=== PATIENT | male | born 1940 | race Two or more races ===

== ENCOUNTER 2019-12-06 15:35 | Emergency (ER) | payer MEDICARE, BC ==
[~2019-12-06] VITALS: Ht 167.6 cm; Wt 65.8 kg
[2019-12-06 15:52] VITALS: BP 101/60
[2019-12-06] MEDS ORDERED: Omnipaque-300 100ml vial INJ PRN ×2 (16:00→16:15)
[2019-12-06] MEDS ORDERED: Morphine Sulfate 2mg/ml Inj(IV/IM USE ONLY) IVP ONE (16:15)
[2019-12-06 16:53] LABS: APPEARANCE,URINE CLEAR; BILIRUBIN, URINE NEGATIVE (NEGATIVE); GLUCOSE, URINE (UA) NEGATIVE (NEGATIVE); KETONES,URINE 1+ (NEGATIVE); LEUKOCYTE ESTERASE ,URINE NEGATIVE (NEGATIVE); NITRITE,URINE NEGATIVE (NEGATIVE); PH,URINE 5 (4.5-8.0); PROTEIN,URINE 1+ (NEGATIVE); UROBILINOGEN,URINE NORMAL MG/DL (0.0-1.0)
[2019-12-06 16:54] LABS: COLOR,URINE YELLOW
[2019-12-06 16:56] VITALS: BP 112/75
[2019-12-06 17:00] LABS: ANION GAP 12 mmol/L (5-15); BLOOD UREA NITROGEN 44 mg/dL (7-18); CALCIUM 8.2 MG/DL (8.5-10.1); CARBON DIOXIDE 27 MMOL/L (21-32); CHLORIDE 105 MMOL/L (98-107); CREATININE 1.2 MG/DL (0.55-1.30); POTASSIUM 3.1 MMOL/L (3.5-5.1); SODIUM 144 MMOL/L (136-145)
[2019-12-06 17:10] LABS: ALANINE AMINOTRANSFERASE 18 U/L (12-78); ALBUMIN 3.2 G/DL (3.4-5.0); ALBUMIN/GLOBULIN RATIO 1.1 (1.0-2.7); ALKALINE PHOSPHATASE 195 U/L (46-116); ASPARTATE AMINO TRANSFERASE 20 U/L (15-37); BILIRUBIN,TOTAL 0.6 MG/DL (0.2-1.0); CREATINE KINASE 40 U/L (26-308)
[2019-12-06 17:13] LABS: HEMATOCRIT 20.9 % (42.0-52.0); HEMOGLOBIN 7.2 G/DL (14.2-18.0); MEAN CORPUSCULAR VOLUME 92 FL (80-99); PLATELET COUNT 161 K/UL (150-450); RED BLOOD COUNT 2.27 M/UL (4.70-6.10); RED CELL DISTRIBUTION WIDTH 16.1 % (11.6-14.8); WHITE BLOOD COUNT 8.7 K/UL (4.8-10.8)
--- NOTE | 2019-12-06 17:58 | Diagnostic Imaging Report ---
History: TRAUMA Exam: CT RIGHT HIP Without Contrast Technique more: CTDI is 5.50 mGy and DLP is 173.40 mGy-cm. Technique more: One or more of the following dose reduction techniques were used: automated exposure control, adjustment of the mA and/or kV according to patient size, use of iterative reconstruction technique. Comparison: FINDINGS: Acute right inferior pubic ramus fracture with mild displacement, buckling for example axial 67 series 13. A second fracture is not identified. The pubic symphysis and symmetric appearing SI joints appear intact. No dislocation. Multiple osseous sclerotic lesions most consistent with metastatic disease, correlate with history. Status post prostatectomy. No evidence of pelvic hematoma. No free fluid. IMPRESSION: Acute right inferior pubic ramus fracture with mild displacement, buckling for example axial 67 series 13. A second fracture is not identified. Multiple osseous sclerotic lesions most consistent with metastatic disease, correlate with history. Status post prostatectomy.
--- NOTE | 2019-12-06 18:13 | Emergency Room Report ---
History of Present Illness General Chief Complaint: Multiple Trauma/Fall Source: Patient Present Illness HPI 79-year-old male with history of prostate cancer, lung cancer, unknown bone cancer, sent to ED by his primary doctor, Dr. Lin, due to bloody emesis, right -sided hip pain after fall that occurred 1 week ago. Patient denies any head injury or loss of consciousness. Patient reports that he just wants a quick blood work as well as some imaging of the affected and injured site and pain medication and does not want to be admitted to the hospital as well as not wanting to stay for the results to be ready. Denies any chest pain, shortness of breath, headache and dizziness at this time. Denies abdominal pain, nausea vomiting diarrhea. Appears to be afebrile and vital signs are otherwise within normal limits. Has not taken medication other than Advil for symptom relief. Patient signed AGAINST MEDICAL ADVICE before results are ready. Patient refuses to do the CT chest, abdomen pelvis. Patient also complaining of upper back pain after a fall however refused to do CT scan of chest and upper back Allergies: Coded Allergies: No Known Allergies (Unverified , 12/06/19) COVID-19 Screening Contact w/high risk pt: No Recent Travel to affected area: No Experienced COVID-19 symptoms?: No COVID-19 Testing performed QUALITY ASSURANCE DIRECTOR: No Patient History Past Medical History: see triage record Past Surgical History: none Pertinent Family History: none Immunizations: UTD Reviewed Nursing Documentation: PMH: Agreed; PSxH: Agreed Nursing Documentation-PMH Hx Diabetes: Yes Hx Cancer: Yes - bone, lungs Review of Systems All Other Systems: negative except mentioned in HPI Physical Exam Vital Signs Date Time Temp Pulse Resp B/P (MAP) Pulse Ox O2 Delivery O2 Flow Rate FiO2 12/06/19 15:52 98.2 90 22 101/60 (74) 95 Room Air Sp02 EP Interpretation: reviewed, normal General Appearance: mild distress Head: normocephalic, atraumatic Eyes: bilateral eye normal inspection, bilateral eye PERRL ENT: hearing grossly normal, normal pharynx, no angioedema, normal voice Neck: full range of motion, supple/symm/no masses Respiratory: chest non-tender, lungs clear, normal breath sounds, no rhonchi, no wheezing, speaking full sentences Cardiovascular #1: normal peripheral pulses, no murmur Cardiovascular #2: 2+ femoral (R), 2+ femoral (L), 2+ dorsalis pedis (R), 2+ dorsalis pedis (L) Gastrointestinal: normal bowel sounds, non tender, soft, non-distended, no guarding, no rebound Genitourinary: no CVA tenderness Musculoskeletal: back normal, no calf tenderness, no lower extremity edema, tender - right hip Neurologic: alert, motor strength/tone normal, oriented x3, sensory intact, responsive, speech normal Psychiatric: judgement/insight normal, memory normal, mood/affect normal, no suicidal/homicidal ideation Skin: no rash Lymphatic: no adenopathy Medical Decision Making PA Attestation All diagnoses and treatment plans were reviewed and discussed with my supervising physician Dr. Griffin Diagnostic Impression: Primary Impression: Pubic ramus fracture Additional Impression: Anemia ER Course 79-year-old male with history of prostate cancer, lung cancer, unknown bone cancer, sent to ED by his primary doctor, Dr. Lin, due to bloody emesis, right -sided hip pain after fall that occurred 1 week ago. Patient denies any head injury or loss of consciousness. Patient reports that he just wants a quick blood work as well as some imaging of the affected and injured site and pain medication and does not want to be admitted to the hospital as well as not wanting to stay for the results to be ready. Denies any chest pain, shortness of breath, headache and dizziness at this time. Denies abdominal pain, nausea vomiting diarrhea. Appears to be afebrile and vital signs are otherwise within normal limits. Has not taken medication other than Advil for symptom relief. Patient signed AGAINST MEDICAL ADVICE before results are ready. Patient refuses to do the CT chest, abdomen pelvis. Patient also complaining of upper back pain after a fall however refused to do CT scan of chest and upper back Ddx considered but are not limited to: Hip fracture versus contusion, anemia, metastatic carcinoma, Vital signs: are WNL, pt. is afebrile H&PE are most consistent with: pubic ramus fx, anemia ORDERS: CT hip, CT head, CBC, CMP, UA, PT and PTT, type and screen, ED INTERVENTIONS: Morphine, Zofran, NS bolus, Pepcid Patient left AGAINST MEDICAL ADVICE before lab results and CT imaging results were ready. Dr. Riley was notified. EKG Diagnostic Results Rate: normal Rhythm: NSR ST Segments: no acute changes Other Impression No acute ST changes Chest X-Ray Diagnostic Results Chest X-Ray Diagnostic Results : Chest X-Ray Ordered: Yes # of Views/Limited/Complete: 1 View Indication: Other EP Interpretation: Yes PA Xray: Interpretation reviewed, by supervising MD, and agrees with findings. Interpretation: no consolidation, no effusion, no pneumothorax Impression: No acute disease Electronically Signed by: Norman Peters PA-C CT/MRI/US Diagnostic Results CT/MRI/US Diagnostic Results #1: Imaging Test Ordered: CT hip Impression IMPRESSION: Acute right inferior pubic ramus fracture with mild displacement, buckling for example axial 67 series 13. A second fracture is not identified. Multiple osseous sclerotic lesions most consistent with metastatic disease, correlate with history. Status post prostatectomy. CT/MRI/US Diagnostic Results #2: Imaging Test Ordered: CT head no contrast Last Vital Signs Date Time Temp Pulse Resp B/P (MAP) Pulse Ox O2 Delivery O2 Flow Rate FiO2 12/06/19 16:56 98.6 79 17 112/75 98 Room Air Disposition: AGAINST MEDICAL ADVICE Condition: Serious Referrals: Freddie Keith MD (PCP) Norman Veras December 06, 2019 18:13
--- NOTE | 2019-12-06 20:41 | Diagnostic Imaging Report ---
Indication: Chest pain Technique: XRAY Chest 1v Comparison: None Findings: Heart size and mediastinal contours within normal limits. Atherosclerotic calcifications noted in the aorta. There is a left-sided peripherally inserted catheter with the tip at the region of the cavoatrial junction. There is a small right pleural effusion with adjacent opacities at the right base. There is no evidence of pneumothorax. Suspect some emphysematous changes at the apices. There are degenerative changes in the spine. No acute osseous abnormality. Impression: Small right pleural effusion with adjacent opacities at the right base which may be related to compressive atelectasis and/or pneumonia.
--- NOTE | 2019-12-06 20:41 | Diagnostic Imaging Report ---
Indication: Headache following trauma Technique: Continuous helical CT scanning of the head was performed utilizing automated exposure control without intravenous contrast material. Axial and coronal reconstructions were obtained. Comparison: None CT dose: Total DLP 1018.8 mGycm; CTDI vol 53.4 mGy Findings: There is no acute intracranial hemorrhage, mass effect or cortical edema. There is no shift of midline structures. The ventricles, cisterns and sulci are prominent consistent with atrophy. Periventricular hypoattenuation is seen, a nonspecific finding. There are atherosclerotic vascular calcifications. Visualized mastoid air cells and paranasal sinuses are unremarkable. No focal lesions of the bony calvarium or soft tissues of the scalp are seen. IMPRESSION: No evidence of acute intracranial hemorrhage, mass effect or cortical edema. Atrophy and nonspecific periventricular hypoattenuation suggestive of chronic ischemic microvascular changes. The CT scanner at [facility] is accredited by the [employer] and the scans are performed using protocols designed to limit radiation exposure to as low as reasonably achievable to attain images of sufficient resolution adequate for diagnostic evaluation.
== END 2019-12-06 16:56 | disposition left against medical advice (07) ==
LOC: EMR 16:00
DX: S32.591A Other specified fracture of right pubis, initial encounter for closed fracture (principal); D64.9 Anemia, unspecified; E11.9 Type 2 diabetes mellitus without complications; C34.90 Malignant neoplasm of unspecified part of unspecified bronchus or lung; C79.51 Secondary malignant neoplasm of bone; C79.82 Secondary malignant neoplasm of genital organs; W19.XXXA Unspecified fall, initial encounter; Y93.9 Activity, unspecified; Y92.9 Unspecified place or not applicable; Z53.29 Procedure and treatment not carried out because of patient's decision for other reasons
CPT/HCPCS: 36415; 70450; 71045; 73700; 80053; 81003; 82550; 83690; 84484; 85007; 85025; 85610; 85730; 86850; 86900; 86901; 93005; 96361; 96374; 96375; 99284; J2270; J2405; J7030; S0028